=== PATIENT | female | born 1965 | race Caucasian/White ===

== ENCOUNTER 2022-10-14 16:23 | Emergency (ER) | payer SELFPAY ==
[2022-10-14 19:55] VITALS: BP 129/82; PULSE 72
== END 2022-10-14 19:54 | disposition home or self-care (01) ==
LOC: MW.ED 16:23
DX: G44.89 Other headache syndrome (principal); I10 Essential (primary) hypertension; E66.9 Obesity, unspecified; Z68.34 Body mass index [BMI] 34.0-34.9, adult; Z79.82 Long term (current) use of aspirin; Z79.899 Other long term (current) drug therapy
CPT/HCPCS: 70450; 70450-26; 93005; 99284